=== PATIENT | male | born 1970 | race Caucasian/White ===

== ENCOUNTER 2024-04-02 17:14 | Emergency (ER) | payer MEDICAID ==
[~2024-04-02] VITALS: Ht 180.3 cm; Wt 111.4 kg
[~2024-04-02 17:14] MED LIST: CYCL-1 PO
[2024-04-02 17:19] VITALS: BP 158/91; PULSE 90; RESP 16; TEMP 98; O2SAT 98
== END 2024-04-02 18:03 | disposition left against medical advice (07) ==
LOC: ER 17:14
DX: R51.9 Headache, unspecified (principal); Z88.2 Allergy status to sulfonamides
CPT/HCPCS: 99281